=== PATIENT | male | born 1935 | race Two or more races ===

== ENCOUNTER → 2017-09-14 | Outpatient (CLI) | payer OTHER ==
[~2017-09-14] MED LIST: ASPIR 8181 MG; NABUMETONE500 MG PO; TRAMADOL HCL50 MG PO; TUSICOF CAPLET1 EACH; VYTORIN 10-20 M1 TAB
== END | disposition home or self-care (01) ==
LOC: PPH VACUNA 09:40
DX: Z23 Encounter for immunization (principal)

== ENCOUNTER 2017-09-21 08:35 | Outpatient (CLI) | payer OTHER | END 2017-09-21 15:00 | disposition home or self-care (01) | LOC: MRI 08:35 | DX: I63.8 Other cerebral infarction (principal) | CPT/HCPCS: 70551 ==

== ENCOUNTER 2018-01-04 08:45 | Outpatient (CLI) | payer OTHER ==
[~2018-01-04 08:45] MED LIST changes: +LIPO-FLAVONOID1 EACH PO
== END 2018-01-04 09:13 | disposition home or self-care (01) ==
LOC: RAD 501 08:45
DX: J44.1 Chronic obstructive pulmonary disease with (acute) exacerbation (principal); J45.41 Moderate persistent asthma with (acute) exacerbation

== ENCOUNTER 2018-02-09 10:04 | Outpatient (CLI) | payer OTHER | END 2018-02-09 10:09 | disposition home or self-care (01) | LOC: RAD 501 10:04 | DX: M54.5 Low back pain (principal) ==

== ENCOUNTER 2018-04-05 14:28 | Outpatient (CLI) | payer OTHER | END 2018-04-05 15:35 | disposition home or self-care (01) | LOC: RAD 501 14:28 | DX: M51.17 Intervertebral disc disorders with radiculopathy, lumbosacral region (principal) ==

== ENCOUNTER 2018-04-26 10:14 | Outpatient (CLI) | payer OTHER | END 2018-04-26 10:37 | disposition home or self-care (01) | LOC: RAD 501 10:14 | DX: M17.0 Bilateral primary osteoarthritis of knee (principal) ==

== ENCOUNTER 2018-08-09 07:47 | Outpatient (CLI) | payer OTHER | END 2018-08-09 08:00 | disposition home or self-care (01) | LOC: TOM 07:47 | DX: D64.89 Other specified anemias (principal); K57.30 Diverticulosis of large intestine without perforation or abscess without bleeding | CPT/HCPCS: 74177; Q9965 ==

== ENCOUNTER 2018-10-23 08:42 | Outpatient (CLI) | payer OTHER | END 2018-10-23 08:47 | disposition home or self-care (01) | LOC: LAB 08:42 | DX: D63.8 Anemia in other chronic diseases classified elsewhere (principal) ==

== ENCOUNTER → 2019-01-08 | Outpatient (CLI) | payer OTHER | END | disposition home or self-care (01) | LOC: NUCLEAR 07:00 | DX: I20.9 Angina pectoris, unspecified (principal) | CPT/HCPCS: 78452; 93017; A9500 ==

== ENCOUNTER 2019-02-06 07:20 | Outpatient (CLI) | payer OTHER | END 2019-02-06 07:47 | disposition home or self-care (01) | LOC: NUCLEAR 07:20 | DX: M81.0 Age-related osteoporosis without current pathological fracture (principal); C61 Malignant neoplasm of prostate | CPT/HCPCS: 77080; 78306; A9503 ==

== ENCOUNTER 2019-02-12 07:29 | Outpatient (CLI) | payer OTHER | END 2019-02-12 10:55 | disposition home or self-care (01) | LOC: TOM 07:29 | DX: D50.8 Other iron deficiency anemias (principal); D46.9 Myelodysplastic syndrome, unspecified | CPT/HCPCS: 71270; 74177; Q9965 ==

== ENCOUNTER 2019-03-13 08:13 | Outpatient (CLI) | payer OTHER ==
[~2019-03-13] VITALS: Ht 152.4 cm; Wt 73.5 kg
== END 2019-03-13 15:25 | disposition home or self-care (01) ==
LOC: OFIC 805 08:13
DX: H61.22 Impacted cerumen, left ear (principal); H81.49 Vertigo of central origin, unspecified ear; H90.3 Sensorineural hearing loss, bilateral; J31.0 Chronic rhinitis

== ENCOUNTER → 2019-08-01 | Outpatient (CLI) | payer OTHER | END | disposition home or self-care (01) | LOC: RAD 10:41 | DX: M17.0 Bilateral primary osteoarthritis of knee (principal); M16.0 Bilateral primary osteoarthritis of hip ==

== ENCOUNTER 2019-09-26 14:52 | Outpatient (CLI) | payer OTHER ==
[~2019-09-26] VITALS: Ht 152.4 cm; Wt 71.7 kg
== END 2019-09-26 15:00 | disposition home or self-care (01) ==
LOC: OFIC 805 14:52
DX: J31.0 Chronic rhinitis (principal); J32.8 Other chronic sinusitis

== ENCOUNTER 2019-10-07 12:42 | Outpatient (CLI) | payer OTHER | END 2019-10-07 12:51 | disposition home or self-care (01) | LOC: TOM 12:42 | DX: J32.0 Chronic maxillary sinusitis (principal) ==

== ENCOUNTER 2020-04-28 09:19 | Outpatient (CLI) | payer OTHER | END 2020-04-28 09:21 | disposition home or self-care (01) | LOC: RAD 09:19 | PROVIDERS: ATTEND Physical Medicine & Rehabilitation | DX: M54.2 Cervicalgia (principal); M54.12 Radiculopathy, cervical region ==

== ENCOUNTER 2020-07-28 13:19 | Outpatient (CLI) | payer OTHER | END 2020-07-28 13:24 | disposition home or self-care (01) | LOC: RAD 13:19 | PROVIDERS: ATTEND Specialist | DX: S22.32XA Fracture of one rib, left side, initial encounter for closed fracture (principal); R07.89 Other chest pain ==

== ENCOUNTER → 2020-08-12 | Outpatient (CLI) | payer OTHER | END | disposition home or self-care (01) | LOC: MAMO-SONO 08:45 → SONOGRAMA 08:50 | PROVIDERS: ATTEND Specialist | DX: Q44.6 Cystic disease of liver (principal); K75.81 Nonalcoholic steatohepatitis (NASH) ==

== ENCOUNTER 2020-12-07 09:34 | Outpatient (CLI) | payer OTHER | END 2020-12-07 09:43 | disposition home or self-care (01) | LOC: RAD 09:34 | PROVIDERS: ATTEND Specialist | DX: J45.998 Other asthma (principal) ==

== ENCOUNTER 2021-01-01 07:38 | Outpatient (CLI) | payer OTHER | END 2021-01-01 07:43 | disposition home or self-care (01) | LOC: SONOGRAMA 07:38 | PROVIDERS: ATTEND Internal Medicine Gastroenterology | DX: R74.01 Elevation of levels of liver transaminase levels (principal); R10.84 Generalized abdominal pain ==

== ENCOUNTER → 2021-01-25 09:32 | Outpatient (CLI) | payer OTHER | END | disposition home or self-care (01) | LOC: LAB 09:32 | PROVIDERS: ATTEND Radiology Diagnostic Radiology | DX: E78.00 Pure hypercholesterolemia, unspecified (principal); Z51.81 Encounter for therapeutic drug level monitoring ==

== ENCOUNTER 2021-02-03 08:36 | Outpatient (CLI) | payer OTHER | END 2021-02-03 08:43 | disposition home or self-care (01) | LOC: TOM 08:36 | PROVIDERS: ATTEND Internal Medicine Cardiovascular Disease | DX: K76.9 Liver disease, unspecified (principal); E78.00 Pure hypercholesterolemia, unspecified | CPT/HCPCS: 74160; Q9965 ==

== ENCOUNTER 2021-02-17 12:50 | Outpatient (CLI) | payer OTHER | END 2021-02-17 12:57 | disposition home or self-care (01) | LOC: RAD 12:50 | PROVIDERS: ATTEND Internal Medicine Pulmonary Disease | DX: R05 Cough (principal); G47.33 Obstructive sleep apnea (adult) (pediatric); J30.1 Allergic rhinitis due to pollen ==

== ENCOUNTER 2021-03-02 12:06 | Outpatient (CLI) | payer OTHER | END 2021-03-02 12:11 | disposition home or self-care (01) | LOC: TOM 12:06 | PROVIDERS: ATTEND Internal Medicine Pulmonary Disease | DX: R06.02 Shortness of breath (principal); J30.1 Allergic rhinitis due to pollen; G47.33 Obstructive sleep apnea (adult) (pediatric) ==

== ENCOUNTER 2021-03-05 09:25 | Outpatient (CLI) | payer OTHER | END 2021-03-05 09:34 | disposition home or self-care (01) | LOC: RAD 09:25 | PROVIDERS: ATTEND Internal Medicine Pulmonary Disease | DX: J98.6 Disorders of diaphragm (principal) ==

== ENCOUNTER 2021-05-03 11:24 | Outpatient (CLI) | payer OTHER | END 2021-05-03 11:29 | disposition home or self-care (01) | LOC: RAD 11:24 | PROVIDERS: ATTEND Internal Medicine Cardiovascular Disease | DX: J90 Pleural effusion, not elsewhere classified (principal) ==

== ENCOUNTER 2021-05-05 08:00 | Outpatient (CLI) | payer OTHER | END 2021-05-05 08:30 | disposition home or self-care (01) | LOC: PPH VACUNA 08:00 | PROVIDERS: ATTEND Emergency Medicine Pediatric Emergency Medicine | DX: Z23 Encounter for immunization (principal) ==

== ENCOUNTER 2021-05-21 07:36 | Outpatient (CLI) | payer OTHER | END 2021-05-21 07:43 | disposition home or self-care (01) | LOC: NUCLEAR 07:36 | PROVIDERS: ATTEND Internal Medicine Cardiovascular Disease | DX: R07.89 Other chest pain (principal); I50.1 Left ventricular failure, unspecified | CPT/HCPCS: 78452; 93017; A9500 ==

== ENCOUNTER 2021-07-19 12:39 | Outpatient (CLI) | payer OTHER | END 2021-07-19 12:55 | disposition home or self-care (01) | LOC: RAD 12:39 | PROVIDERS: ATTEND Physical Medicine & Rehabilitation | DX: S43.61XA Sprain of right sternoclavicular joint, initial encounter (principal); M25.511 Pain in right shoulder; S40.011A Contusion of right shoulder, initial encounter ==

== ENCOUNTER 2021-07-28 07:42 | Outpatient (CLI) | payer OTHER | END 2021-07-28 07:46 | disposition home or self-care (01) | LOC: SONOGRAMA 07:42 | PROVIDERS: ATTEND Specialist | DX: M75.111 Incomplete rotator cuff tear or rupture of right shoulder, not specified as traumatic (principal) ==

== ENCOUNTER 2021-11-30 08:00 | Outpatient (CLI) | payer OTHER | END 2021-11-30 08:30 | disposition home or self-care (01) | LOC: PPH VACUNA 08:00 | PROVIDERS: ATTEND Emergency Medicine Pediatric Emergency Medicine | DX: Z23 Encounter for immunization (principal) ==

== ENCOUNTER 2022-02-15 09:11 | Outpatient (CLI) | payer OTHER | END 2022-02-15 09:19 | disposition home or self-care (01) | LOC: RAD 09:11 | PROVIDERS: ATTEND Specialist | DX: J45.998 Other asthma (principal) ==

== ENCOUNTER → 2022-04-14 | Emergency (ER) | payer OTHER ==
[~2022-04-14] VITALS: Ht 167.6 cm; Wt 68.5 kg
[~2022-04-14] MED LIST changes: +HORIZANT300 MG; +HORIZANT600 MG; +SYNTHROID50 MCG PO; +TYLENOL ARTHRI650 MG PO
== END | disposition designated cancer center or children's hospital (05) ==
LOC: ER 17:49
DX: S02.31XA Fracture of orbital floor, right side, initial encounter for closed fracture (principal); S01.521A Laceration with foreign body of lip, initial encounter; W18.31XA Fall on same level due to stepping on an object, initial encounter; Y93.01 Activity, walking, marching and hiking; Y92.413 State road as the place of occurrence of the external cause; H57.89 Other specified disorders of eye and adnexa; Z20.822 Contact with and (suspected) exposure to COVID-19

== ENCOUNTER 2022-04-25 12:29 | Outpatient (CLI) | payer OTHER | END 2022-04-25 12:37 | disposition home or self-care (01) | LOC: RAD 12:29 | PROVIDERS: ATTEND Physical Medicine & Rehabilitation | DX: M54.50 Low back pain, unspecified (principal); W19.XXXA Unspecified fall, initial encounter ==

== ENCOUNTER → 2022-07-12 | Outpatient (CLI) | payer OTHER | END | disposition home or self-care (01) | LOC: NUCLEAR 08:00 | PROVIDERS: ATTEND Internal Medicine Cardiovascular Disease | DX: I87.2 Venous insufficiency (chronic) (peripheral) (principal) ==

== ENCOUNTER 2022-09-29 12:46 | Outpatient (CLI) | payer OTHER | END 2022-09-29 12:53 | disposition home or self-care (01) | LOC: RAD 12:46 | PROVIDERS: ATTEND Physical Medicine & Rehabilitation | DX: M79.672 Pain in left foot (principal); R22.42 Localized swelling, mass and lump, left lower limb ==

== ENCOUNTER 2022-10-31 08:36 | Outpatient (CLI) | payer OTHER | END 2022-10-31 08:37 | disposition home or self-care (01) | LOC: NUCLEAR 08:36 | PROVIDERS: ATTEND Anesthesiology Pain Medicine | DX: I87.2 Venous insufficiency (chronic) (peripheral) (principal); I73.9 Peripheral vascular disease, unspecified ==

== ENCOUNTER 2022-11-21 11:37 | Outpatient (CLI) | payer OTHER | END 2022-11-21 11:42 | disposition home or self-care (01) | LOC: RAD 11:37 | PROVIDERS: ATTEND Specialist | DX: I70.0 Atherosclerosis of aorta (principal) ==

== ENCOUNTER → 2023-01-20 07:39 | Outpatient (CLI) | payer OTHER | END | disposition home or self-care (01) | LOC: NUCLEAR 07:00 | PROVIDERS: ATTEND Internal Medicine Cardiovascular Disease | DX: I25.2 Old myocardial infarction (principal) | CPT/HCPCS: 78452; 93017; A9500 ==

== ENCOUNTER 2023-01-25 10:37 | Outpatient (CLI) | payer OTHER | END 2023-01-25 10:53 | disposition home or self-care (01) | LOC: SONOGRAMA 10:37 | PROVIDERS: ATTEND Internal Medicine Cardiovascular Disease | DX: R10.84 Generalized abdominal pain (principal) ==

== ENCOUNTER 2023-03-01 10:51 | Outpatient (CLI) | payer OTHER | END 2023-03-01 11:03 | disposition home or self-care (01) | LOC: RAD 10:51 | PROVIDERS: ATTEND Physical Medicine & Rehabilitation | DX: M25.531 Pain in right wrist (principal) ==

== ENCOUNTER 2023-05-02 10:04 | Outpatient (CLI) | payer OTHER | END 2023-05-02 10:12 | disposition home or self-care (01) | LOC: TOM 10:04 | PROVIDERS: ATTEND Internal Medicine Pulmonary Disease | DX: J45.30 Mild persistent asthma, uncomplicated (principal); G47.33 Obstructive sleep apnea (adult) (pediatric); J98.6 Disorders of diaphragm; R07.9 Chest pain, unspecified; U09.9 Post COVID-19 condition, unspecified ==